=== PATIENT | female | born 1985 | race Asian ===

== ENCOUNTER 2023-07-16 15:22 | Outpatient (CLI) | payer MEDICAID | END 2023-07-16 23:59 | disposition home or self-care (01) | LOC: RAD 15:22 | PROVIDERS: ATTEND Physician Assistant | DX: R22.2 Localized swelling, mass and lump, trunk (principal) | CPT/HCPCS: 76882 ==

== ENCOUNTER → 2023-08-24 | Outpatient (CLI) | payer MEDICAID | END | disposition home or self-care (01) | LOC: RAD 11:11 | PROVIDERS: ATTEND Nurse Practitioner Family | DX: M25.552 Pain in left hip (principal); M54.50 Low back pain, unspecified; R22.2 Localized swelling, mass and lump, trunk | CPT/HCPCS: 72110; 72200; 73502 ==